=== PATIENT | male | born 1955 | race Caucasian/White ===

== ENCOUNTER → 2018-07-05 | Outpatient (CLI) | payer OTHER ==
--- NOTE | 2018-07-05 12:15 | RAD ---
Right lower extremity venous ultrasound : History: Right knee pain Duplex evaluation including grayscale, color flow and spectral Doppler analysis was performed. The femoral and popliteal veins show no filling defects to suggest DVT. The visualized calf veins are unremarkable. A Bhandari's cyst is not identified. IMPRESSION: 1. There is no sonographic evidence of deep vein thrombosis in the right lower extremity. 2. A Bhandari's cyst is not identified. Electronically signed by: Rikki Abdalla MD (07/05/2018 12:12 PM) [facility]
== END | disposition home or self-care (01) ==
LOC: US 11:26
PROVIDERS: ATTEND Internal Medicine Cardiovascular Disease
DX: M25.561 Pain in right knee (principal); M79.604 Pain in right leg
CPT/HCPCS: 93971